=== PATIENT | male | born 1985 | race Caucasian/White ===

== ENCOUNTER 2017-08-24 09:32 | Emergency (ER) | payer OTHER ==
[~2017-08-24] VITALS: Ht 170.2 cm; Wt 74.8 kg
--- NOTE | 2017-08-24 11:44 | ED CARDIAC/CP/PALPITATIONS ---
History of Present Illness General Chief Complaint: Chest Pain Stated Complaint: CP Source: patient Exam Limitations: no limitations Vital Signs & Intake/Output Vital Signs & Intake/Output Vital Signs Date Time Temp Pulse Resp B/P B/P Pulse O2 O2 Flow FiO2 Mean Ox Delivery Rate 08/24 1537 74 16 143/83 100 Room Air 08/24 1326 98.9 67 16 130/82 99 Room Air 08/24 0944 96.5 86 18 157/87 100 Room Air Room Air Allergies Coded Allergies: No Known Allergies (08/24/17) Reconcile Medications Omeprazole 40 MG CAPSULE. 1 CAP PO DAILY ACID REFLUX Triage Note: PT TO ED WITH C/O INTERMITTENT CHEST TIGHTNESS, THIS AM WORSE. PT DENIES HEAVY LIFTING OR FALL, INJURY TO THE AREA. EKG DONE FROM [employer] DESK. Triage Nurses Notes Reviewed? yes Onset: Abrupt Duration: hour(s): (4-5) Quality/Severity: moderate, sharp Location: central Radiation: no radiation HPI: 31-year-old male comes into the emergency room for further evaluation of central chest pain has been going on since around 7 AM this morning. Pain is sharp. Nonradiating. Denies any shortness of breath. Some associated heaviness in arms. Denies any vomiting but some associated nausea. Denies any belching or abdominal pain. Pain was more intense in nature earlier this morning and is less severe but still present. It has been continuous. Denies any prior history. Denies any family history of CAD less than 55 years of age. (Dakota Hernández) Past History Travel History Traveled to [place] past 21 day No Medical History Any Pertinent Medical History? none Neurological: NONE EENT: NONE Cardiovascular: NONE Respiratory: NONE Gastrointestinal: GERD Hepatic: NONE Renal: NONE Musculoskeletal: NONE Psychiatric: NONE Endocrine: NONE Blood Disorders: NONE Cancer(s): NONE Surgical History Surgical History: non-contributory Psychosocial History What is your primary language Finnish Tobacco Use: Current Daily Use Daily Tobacco Use Amount/Type: => 5 Cigarettes daily ETOH Use: occasional use Illicit Drug Use: denies illicit drug use Family History Hx Contributory? No (Dakota Hernández) Review of Systems Review of Systems Constitutional: Reports: no symptoms. EENTM: Reports: no symptoms. Respiratory: Reports: see HPI. Cardiovascular: Reports: see HPI. GI: Reports: no symptoms. Genitourinary: Reports: no symptoms. Musculoskeletal: Reports: no symptoms. Skin: Reports: no symptoms. Neurological/Psychological: Reports: no symptoms. Hematologic/Endocrine: Reports: no symptoms. Immunologic/Allergic: Reports: no symptoms. All Other Systems: Reviewed and Negative (Dakota Hernández) Physical Exam Physical Exam General Appearance: well developed/nourished, no apparent distress, alert, awake Head: atraumatic, normal appearance Eyes: Bilateral: normal appearance, EOMI. Ears, Nose, Throat: normal ENT inspection, hearing grossly normal Neck: normal inspection Respiratory: normal breath sounds, no respiratory distress Cardiovascular: regular rate/rhythm Gastrointestinal: soft, non-tender Back: normal inspection Extremities: normal inspection, normal range of motion, no edema Neurologic/Psych: awake, alert, oriented x 3, normal gait Skin: intact, normal color Core Measures ACS in differential dx? No CVA/TIA Diagnosis No Sepsis Present: No Sepsis Focused Exam Completed? No (Dakota Hernández) Progress Differential Diagnosis: AMI, aortic dissection, cholecystitis, costochondritis, musculoskeletal pain, myocarditis, pancreatitis, pericarditis, pneumonia, pneumothorax, pulmonary embolism, PUD/GERD, rib fracture, unstable angina, WPW syndrome Plan of Care: Orders Procedure Date/time Status TROPONIN LEVEL 08/24 1500 Complete EKG 08/24 1500 Active Add-on Test (ER Only) 08/24 1144 Active Telemetry/Mechanics Supervisor 08/24 1129 Active TROPONIN LEVEL 08/24 1129 Complete LIPASE 08/24 1129 Complete D-DIMER 08/24 1129 Complete COMPREHENSIVE METABOLIC PANEL 08/24 1129 Complete CBC WITHOUT DIFFERENTIAL 08/24 1129 Complete EKG 08/24 0934 Active Laboratory Tests 08/24/17 1500: Troponin I < 0.01 08/24/17 1200: Anion Gap 10, Estimated GFR > 60, BUN/Creatinine Ratio 13.8, Glucose 95, Calcium 10.0, Total Bilirubin 0.5, AST 58, ALT 63, Alkaline Phosphatase 97, Troponin I < 0.01, Total Protein 7.9, Albumin 4.9, Globulin 3.0, Albumin/Globulin Ratio 1.6, Lipase 159, D-Dimer High Sensitivty < 200, CBC w Diff NO MAN DIFF REQ, RBC 5.40, MCV 92.4, MCH 32.2 H, MCHC 34.9, RDW 12.7, MPV 7.5, Gran % 79.8 H, Lymphocytes % 12.8 L, Monocytes % 5.3, Eosinophils % 1.5, Basophils % 0.6, Absolute Granulocytes 7.0 H, Absolute Lymphocytes 1.1 L, Absolute Monocytes 0.5, Absolute Eosinophils 0.1, Absolute Basophils 0 Diagnostic Imaging: Viewed by Me: Radiology Read. Discussed w/RAD: Radiology Read. Radiology Impression: PATIENT: FLAKITA ALCANTARA PRESENT AGE: 31 PATIENT ACCOUNT NO: [id number] : 85 LOCATION: [facility] ORDERING PHYSICIAN: Dakota VALLECILLO SERVICE DATE: 08/24/17 EXAM TYPE: RAD - XRY-CHEST XRAY, TWO VIEWS EXAMINATION: XR CHEST CLINICAL INFORMATION: Chest pain. COMPARISON: None TECHNIQUE: 2 views of the chest were obtained. FINDINGS: Both lungs are symmetrically expanded and are clear. The cardiomediastinal silhouette is within normal limits. There is no pleural effusion or pneumothorax present. The visualized upper abdomen is unremarkable. Mild degenerative spondylosis is seen in the spine. IMPRESSION: No acute cardiopulmonary disease. DICTATED BY: Kevin Kapadia MD DATE/TIME DICTATED:08/24/171239 GRILL ASSOCIATE:GABE DATE/TIME TRANSCRIBED:08/24/171239 CONFIDENTIAL, DO NOT COPY WITHOUT APPROPRIATE AUTHORIZATION. <Electronically signed in Other Vendor System> SIGNED BY: Kevin Kapadia MD 08/24/17 1245 Initial ED EKG: normal sinus rhythm, rate (76), nonspecific ST T wave chg Repeat EKG: unchanged (Dakota Hernández) Departure Departure Disposition: HOME OR SELF CARE Condition: Stable Clinical Impression Primary Impression: Atypical chest pain Referrals: Patient Has No Primary Care Dr (PCP/Family) Additional Instructions: Take omeprazole as prescribed. Follow-up with primary care doctor. Return if any concerns worsening symptoms. Please go over all results of today's visit with your primary care doctor. Contact your primary care doctor to let them know you were here in the emergency room. There may be nonspecific findings which may not be related to your visit today here in the emergency room but may require further evaluation and chronic monitoring by your primary care doctor. If you had a laceration today the chance of foreign body always remains. You should follow-up with your primary care doctor for recheck in 3-5 days for a wound check. If you had an x-ray done there is a chance that a fracture could have been missed on initial read and you should follow-up with your primary care doctor for repeat x-rays if symptoms persist. If your blood pressure was elevated here in the emergency room please have rechecked by our primary care doctor within the next 48. If you were prescribed a narcotic here in the emergency room or any type of controlled substances you're not allowed to drive while taking this medication or operate any type of heavy machinery. Narcotics can make you feel lightheaded dizziness nausea and can cause constipation. You may need to bead picker a stool softener. Thank you for choosing [facility] emergency room. Please return to the emergency room immediately if you have any other concerns worsening of symptoms. Departure Forms: Customer Survey General Discharge Information Prescriptions: Current Visit Scripts Omeprazole 1 CAP PO DAILY #30 CAP Comments 08/24/2017 5:08:53 PM Patient clinically looks well. In no apparent distress. Nontoxic appearing. Resting comfortably in room. Follow-up with PCP. 2 normal troponins. Negative d-dimer. Patient understands and agrees with plan of care. (Dakota Hernández) PA/LAB CLERK Co-Sign Statement Statement: ED Attending supervision documentation- X I saw and evaluated the patient. I have also reviewed all the pertinent lab results and diagnostic results. I agree with the findings and the plan of care as documented in the PA's/LAB CLERK's documentation. [] I have reviewed the ED Record and agree with the PA's/LAB CLERK's documentation. [] Additions or exceptions (if any) to the PAs/LAB CLERK's note and plan are summarized below: [] (Kodi De Leon MD) Critical Care Note Critical Care Note Critical Care Time: non-applicable (Dakota Hernández)
[2017-08-24 12:22] LABS: ABSOLUTE BASOPHIL COUNT 0 /CUMM (0.0-0.2); ABSOLUTE EOSINOPHIL COUNT 0.1 /CUMM (0.0-0.7); ABSOLUTE LYMPH COUNT 1.1 /CUMM (1.2-3.4); ABSOLUTE MONOCYTE COUNT 0.5 /CUMM (0.10-0.60); BASOPHIL % 0.6 % (0.0-2.0); EOSINOPHIL % 1.5 % (0-5); GRANULOCYTE % 79.8 % (42.2-75.2); HEMATOCRIT 49.9 % (42-52); MEAN CORPUSCULAR HGB 32.2 PG (27.0-31.0); MEAN CORPUSCULAR HGB CONC 34.9 G/DL (33.0-37.0); MEAN CORPUSCULAR VOLUME 92.4 FL (80.0-94.0); MEAN PLATELET VOLUME 7.5 FL (7.4-10.4); PLATELET COUNT 277 /CUMM (130-400); RBC DISTRIBUTION WIDTH 12.7 % (11.5-14.5); WHITE BLOOD CELL COUNT 8.8 /CUMM (4.8-10.8)
--- NOTE | 2017-08-24 12:44 | RADIOLOGY REPORT ---
EXAMINATION: XR CHEST CLINICAL INFORMATION: Chest pain. COMPARISON: None TECHNIQUE: 2 views of the chest were obtained. FINDINGS: Both lungs are symmetrically expanded and are clear. The cardiomediastinal silhouette is within normal limits. There is no pleural effusion or pneumothorax present. The visualized upper abdomen is unremarkable. Mild degenerative spondylosis is seen in the spine. IMPRESSION: No acute cardiopulmonary disease.
[2017-08-24] MEDS ORDERED: OMEPRAZOLE40 M1 PO (16:19)
== END 2017-08-24 16:32 ==
LOC: ERH 09:32
PROVIDERS: Physician Assistant Medical
DX: R07.89 Other chest pain (principal)
CPT/HCPCS: 71046; 93005; 93010